=== PATIENT | female | born 1995 | race Caucasian/White ===

== ENCOUNTER 2017-09-23 19:15 | Emergency (ER) | payer BC, SELFPAY ==
[2017-09-23] MEDS ORDERED: CEFTRIAXONE/SWI 1gm 0 GM/0 ML SYR ONE (20:11)
[2017-09-23] MEDS ORDERED: ONDANSETRON 4 MG/2 ML VIAL ONE (20:24)
[2017-09-23] MEDS ORDERED: KETOROLAC 30 MG/ML INJ ONE (20:24)
[2017-09-23] MEDS ORDERED: MORPHINE 4 MG/ML SYR ONE (20:24)
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
[2017-09-23] MEDS ORDERED: CODEINE 30MG/APAP 300MG TAB ONE (21:24)
[2017-09-23] MEDS ORDERED: SILVER SULFADIAZINE 1% 25 GM TOP ONE (21:25)
== END 2017-09-23 21:44 | disposition home or self-care (01) ==
LOC: ER 19:15
DX: T23.201A Burn of second degree of right hand, unspecified site, initial encounter (principal); V43.52XA Car driver injured in collision with other type car in traffic accident, initial encounter; Z88.6 Allergy status to analgesic agent; Z91.048 Other nonmedicinal substance allergy status
CPT/HCPCS: 70450; 72125; 99284; J0696; J2405

== ENCOUNTER 2018-05-15 12:35 | Emergency (ER) | payer BC ==
[2018-05-15] MEDS ORDERED: LIDOCAINE 1% MPF 5 ML VIAL ONE (14:44)
[2018-05-15] MEDS ORDERED: BUPIVACAINE 0.5% PF 10 ML VIAL ONE (14:57)
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
--- NOTE | 2018-05-15 15:11 | EDPHYS ---
Physician Documentation [facility] Name: Sabina Hayden Age: 23 yrs Sex: Female : 1995 Arrival Date: 05/15/2018 Time: 12:37 Bed 10 Private MD: Barrett Veronica ED Physician Tomi Chu HPI: 05/15 13:56 This 23 yrs old Female presents to ER via Ambulatory with complaints of rh1 Finger Injury. 13:56 The patient or guardian reports a laceration, clean, 1 cm(s). The complaints affect the rh1 palmar aspect of proximal phalanx of left index finger. Context: The problem was sustained at home, resulted from cut with knife. Onset: The symptoms/episode began/occurred today, at 12:30. Modifying factors: The symptoms are alleviated by nothing, the symptoms are aggravated by movement. Associated signs and symptoms: Pertinent negatives: cyanosis distally, decreased sensation distally, numbness distally, tingling distally. Severity of symptoms: At their worst the symptoms were mild, in the emergency department the symptoms are unchanged. The patient has not experienced similar symptoms in the past. The patient has not recently seen a physician. She was cutting an avocado with a knife and it slipped causing a laceration at the left proximal index finger. She has pain at site, and slow oozing of blood from the wound. Denies any paresthesias, decreased ROM.. 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 - Social history:: Smoking status: Patient/guardian denies using tobacco. - Ebola Screening: : No symptoms or risks identified at this time. ROS: 13:56 Constitutional: Negative for fever, chills rh1 13:56 MS/extremity: Positive for tenderness, Negative for decreased range of motion, paresthesias, swelling. 13:56 Skin: Positive for laceration(s). 13:56 Neuro: Negative for numbness, tingling. Exam: 13:56 Constitutional: This is a well developed, well nourished patient who is awake, alert, rh1 and in no acute distress. Head/Face: Normocephalic, atraumatic. Cardiovascular: Regular rate and rhythm with a normal S1 and S2. No gallops, murmurs, or rubs. No JVD. No pulse deficits. Respiratory: Lungs have equal breath sounds bilaterally, clear to auscultation. No rales, rhonchi or wheezes noted. No increased work of breathing. Abdomen/GI: Soft, non-tender, with normal bowel sounds. No distension. No guarding or rebound. No evidence of tenderness throughout. 13:56 Musculoskeletal/extremity: Extremities: grossly normal except: noted in the palmar aspect of proximal phalanx of left index finger: pain, tenderness, There is no evidence of decreased ROM, deformity, erythema, ROM: full active range of motion, in the palmar aspect of proximal phalanx of left index finger, full flexion at index finger, Pulses: noted to be 2+ in the right radial artery and left radial artery, Perfusion: the extremity is pink, warm, with brisk capillary refill, left index finger, Sensation intact. Tendon exam: specific tendon testing normal through active and passive range of motion 13:56 Skin: injury, laceration(s), the wound is approximately 1 cm(s), of the palmar aspect of proximal phalanx of left index finger, that can be described as clean, no foreign body, linear, with mild bleeding. 13:56 Neuro: Orientation: is normal, to person, place \T\ time. Mentation: is normal, lucid, able to follow commands, Motor: is normal, moves all fours, strength is 5/5 in all extremities, Sensation: is normal, no obvious gross deficits, numbness, is not appreciated, tingling, is not appreciated, Gait: is steady, at a normal pace, without difficulty. Vital Signs: 13:14 BP 128 / 76; Pulse 68; Resp 16 S; Temp 98.2(TE); Pulse Ox 99% on R/A; Weight 58.97 kg aa5 (R); Height 5 ft. 4 in. (162.56 cm) (R); Pain 8/10; 13:14 Body Mass Index 22.31 (58.97 kg, 162.56 cm) aa5 Laceration: 15:08 Wound Repair of 1cm ( 0.4in ) subcutaneous laceration to palmar aspect of proximal rh1 phalanx of left index finger. Linear shaped.. Distal neuro/vascular/tendon intact. Anesthesia: Digital block administered with 3 mls of Lido/Marcaine. Wound prep: Moderate cleansing with hibiclenz by nurse, Wound irrigation with saline by nurse. Skin closed with 3 4-0 Prolene using simple sutures and sterile technique. Dressed with Bacitracin, 4x4's, pressure dressing. Patient tolerated well. MDM: 13:56 Patient medically screened. rh1 15:08 Data reviewed: vital signs, nurses notes, and as a result, I will discharge patient. rh1 Data interpreted: Pulse oximetry: on room air is 99 %. Interpretation: normal. Counseling: I had a detailed discussion with the patient and/or guardian regarding: the historical points, exam findings, and any diagnostic results supporting the discharge/admit diagnosis, the need for outpatient follow up, a family practitioner, to return to the emergency department if symptoms worsen or persist or if there are any questions or concerns that arise at home. 05/15 14:06 Order name: Prolene, Sutures; Complete Time: 14:54 rh1 05/15 14:06 Order name: Dressing - Wound; Complete Time: 15:32 rh1 05/15 14:06 Order name: Gloves, Sterile; Complete Time: 14:37 rh1 05/15 14:06 Order name: Setup Suture Tray; Complete Time: 14:37 rh1 05/15 14:06 Order name: Wound Care: plesas irrigate with 1 L saline; Complete Time: 14:54 rh1 Administered Medications: 15:00 Drug: Lidocaine (1 %) 1 vials Volume: 20 ml; Route: Infiltration; iw Disposition: 05/16 09:16 Co-signature as Attending Physician, Tomi Chu MD I agree with the assessment and kathia plan of care. Disposition: 05/15/18 15:10 Discharged to Home. Impression: Laceration without foreign body of left index finger without damage to nail. - Condition is Stable. - Discharge Instructions: Laceration Care, Adult, Sutured Wound Care. - Medication Reconciliation Form, Thank You Letter, Antibiotic Education, Prescription Opioid Use form. - Follow up: Barrett Veronica MD; When: 10 - 14 days; Reason: Recheck today's complaints, Continuance of care, Staple/Suture removal, Re-evaluation by your physician. Follow up: Emergency Department; When: As needed; Reason: Fever > 102 F, If symptoms return, Trouble breathing, Worsening of condition. - Problem is new. - Symptoms have improved. - Notes: 1. Have your stitches removed in 10 - 14 days. Signatures: Tomi Chu MD MD cha Williams, Irene RN RN Caprice Vargas RN RN aa5 Marybeth Bello, ALEXANDER NAIL MACHINE OPERATOR rh1 Corrections: (The following items were deleted from the chart) 05/15 15:32 15:10 05/15/2018 15:10 Discharged to Home. Impression: Laceration without foreign body iw of left index finger without damage to nail. Condition is Stable. Forms are Medication Reconciliation Form, Thank You Letter, Antibiotic Education, Prescription Opioid Use. Follow up: Barrett Veronica; When: 10 - 14 days; Reason: Recheck today's complaints, Continuance of care, Staple/Suture removal, Re-evaluation by your physician. Follow up: Emergency Department; When: As needed; Reason: Fever > 102 F, If symptoms return, Trouble breathing, Worsening of condition. Problem is new. Symptoms have improved. rh1
== END 2018-05-15 15:32 | disposition home or self-care (01) ==
LOC: ER 12:35
PROC: 0JQK0ZZ Repair Left Hand Subcutaneous Tissue and Fascia, Open Approach (ICD-10-PCS; principal; 2018-05-15)
DX: S61.211A Laceration without foreign body of left index finger without damage to nail, initial encounter (principal); W26.0XXA Contact with knife, initial encounter; Y93.G3 Activity, cooking and baking; Y92.009 Unspecified place in unspecified non-institutional (private) residence as the place of occurrence of the external cause
CPT/HCPCS: 99283